=== PATIENT | male | born 1960 | race American Indian/Alaskan Native ===

== ENCOUNTER 2018-01-22 11:55 | Inpatient (IN) | payer SELFPAY ==
--- NOTE | 2018-01-22 12:23 | ED PDOC ---
Arrival/HPI - History of Present Illness Time/Duration: 24 hours Symptom Onset: Gradual Symptom Course: Intermittent, Worsening Activities at Onset: Sleeping Context: Exertion <Devon Nielsen - Last Filed: 01/22/18 14:07> <Wilson Bedoya - Last Filed: 01/22/18 15:41> - General Chief Complaint: Shortness Of Breath Time Seen by Provider: 01/22/18 12:02 - History of Present Illness Narrative History of Present Illness (Text): 01/22/18 12:20 Patient is a 57 year old male with no PMH who presents to ED with shortness of breath that has been going on intermittently for the past week but worsening for the last 12 hours. He states that he had an upper respiratory infection 2 weeks ago and was subsequently treated with antibiotics. He finished the antibiotics 6 days ago. He states that the SOB is worse when he lies down and endorses orthopnea and paroxysmal nocturnal dyspnea. He also states he has had a dry cough over the past week which is also worse at night. He denies fever, chills, CP, palpitations, peripheral swelling, calf pain, recent surgery, or recent travel. Normally he is ambulatory independently at home. (Devon Nielsen) Past Medical History - Provider Review Nursing Documentation Reviewed: Yes - Travel History Have you recently traveled outside [place] w/in the past 3 mons?: No - Psychiatric Hx Substance Use: No <Devon Nielsen - Last Filed: 01/22/18 14:07> Family/Social History - Physician Review Nursing Documentation Reviewed: Yes Family/Social History: Hypertension (mother and father) Smoking Status: Never Smoked Hx Alcohol Use: No Hx Substance Use: No <Devon Nielsen - Last Filed: 01/22/18 14:07> Allergies/Home Meds <Devon Nielsen - Last Filed: 01/22/18 14:07> <Wilson Bedoya - Last Filed: 01/22/18 15:41> Allergies/Adverse Reactions: Allergies No Known Allergies Allergy (Verified 01/22/18 12:03) Home Medications: Home Meds Medication Instructions Recorded Confirmed No Known Home Med 01/22/18 01/22/18 Review of Systems - Physician Review All systems were reviewed & negative as marked: Yes - Review of Systems Constitutional: absent: Fatigue, Weight Change, Fevers Eyes: absent: Vision Changes ENT: Sinus Congestion. absent: Sore Throat, Rhinorrhea Respiratory: SOB, Cough. absent: Sputum, Wheezing Cardiovascular: SLATER. absent: Chest Pain, Palpitations, Calf Pain Gastrointestinal: absent: Abdominal Pain, Nausea, Vomiting Genitourinary Male: absent: Dysuria, Frequency Musculoskeletal: absent: Arthralgias, Back Pain Skin: absent: Rash, Pruritis Neurological: absent: Headache, Dizziness, Speech Changes Endocrine: absent: Diaphoresis Hemo/Lymphatic: absent: Adenopathy Psychiatric: absent: Anxiety, Depression <Devon Nielsen - Last Filed: 01/22/18 14:07> Physical Exam Vital Signs Reviewed: Yes Temperature: Afebrile Blood Pressure: Normal Pulse: Regular Respiratory Rate: Normal Appearance: Positive for: Non-Toxic, Comfortable Pain Distress: Mild (patient dyspneic while speaking) Mental Status: Positive for: Alert and Oriented X 3 - Systems Exam Head: Present: Atraumatic, Normocephalic Pupils: Present: PERRL Extroacular Muscles: Present: EOMI Conjunctiva: Present: Normal Ears: Present: Normal Mouth: Present: Moist Mucous Membranes Pharnyx: Present: Normal. No: ERYTHEMA, EXUDATE Nose (External): Present: Atraumatic Neck: Present: Normal Range of Motion. No: JVD Respiratory/Chest: Present: Clear to Auscultation, Other (dyspneic while speaking and with exertion). No: Wheezes, Rales, Rhonchi Cardiovascular: Present: Normal S1, S2, Tachycardic. No: Murmurs, Rub, Gallop Abdomen: No: Tenderness, Rebound, Guarding Upper Extremity: Present: Normal Inspection. No: Cyanosis Lower Extremity: Present: Normal Inspection. No: Edema Neurological: Present: Speech Normal, Motor Func Grossly Intact, Gait Normal Skin: Present: Warm, Dry Psychiatric: Present: Alert, Oriented x 3 <Devon Nielsen - Last Filed: 01/22/18 14:07> Vital Signs Temp Pulse Resp BP Pulse Ox 01/22/18 14:16 177/80 H 01/22/18 14:06 97 H 17 152/95 H 97 01/22/18 12:05 17 98 01/22/18 12:01 98.8 F 99 H 18 177/81 H 98 Medical Decision Making - Lab Interpretations I have reviewed the lab results: Yes - RAD Interpretation Tree Driller: Radiologist - EKG Interpretation Interpreted by ED Physician: Yes Type: 12 lead EKG Comparison: No previous EKG avail. <Devon Nielsen - Last Filed: 01/22/18 14:07> <Wilson Bedoya - Last Filed: 01/22/18 15:41> ED Course and Treatment: 01/22/18 12:25 -Patient presenting with SOB worsening over the past week -Lungs CTA bilaterally -Mild tachycardia but denies recent travel, surgery, immobility, or calf pain/ swelling -EKG with biatrial enlargement, left axis deviation, prolonged QT, likely chronic changes but no prior EKG to compare -Will get CBC, CMP, BNP, troponin, D-dimer 01/22/18 13:31 -D-dimer, troponins negative -BNP elevated at 1750 with pulmonary vascular congestion on CXR -Patient has no prior diagnosis of CHF -Single dose of Lasix 40 mg IVP given in ED -Case discussed with Dr. Law who agrees with plan for admission (Devon Nielsen) pt seenw [facility] resident progressive dyspnea. s/p antibitoics by pmd. cxr shows congestion, bnp elevated. lasix dosed. accepted to tele by pmd. 01/22/18 15:40 (Wilson Bedoya) - Lab Interpretations Lab Results: 01/22/18 12:46 01/22/18 12:46 Lab Results 01/22/18 12:46: Sodium 145, Potassium 4.2, Chloride 106, Carbon Dioxide 28, Anion Gap 15, BUN 20, Creatinine 1.5, Est GFR ( Amer) 59, Est GFR (Non- Af Amer) 49, Random Glucose 109, Calcium 8.6, Magnesium 1.9, Total Bilirubin 0.6 , AST 51, ALT 55, Alkaline Phosphatase 47, Lactate Dehydrogenase 614, Total Creatine Kinase 767 H, CK-MB (CK-2) 5.5 H, CK-MB (CK-2) % 0.7 L, Troponin I 0.04 , NT-Pro-B Natriuret Pep 1750 H, Total Protein 7.2, Albumin 4.0, Globulin 3.2, Albumin/Globulin Ratio 1.2 01/22/18 12:46: Urine Color Yellow, Urine Appearance Clear, Urine pH 6.0, Ur Specific [place] 1.025, Urine Protein Negative, Urine Glucose (UA) Negative, Urine Ketones Negative, Urine Blood Negative, Urine Nitrate Negative, Urine Bilirubin Negative, Urine Urobilinogen 0.2, Ur Leukocyte Esterase Small H, Urine RBC Negative, Urine WBC 2 - 5, Ur Epithelial Cells 1 - 3 01/22/18 12:46: PT 11.7, INR 1.03, APTT 30.0, D-Dimer, Quantitative < 200 01/22/18 12:46: WBC 5.3, RBC 5.18, Hgb 14.2, Hct 43.5, MCV 84.0, MCH 27.4, MCHC 32.6, RDW 14.6 H, Plt Count 189, MPV 11.3 H, Gran % 44.3 L, Lymph % (Auto) 43.6 H, [place] % (Auto) 8.5 H, Eos % (Auto) 3.0, Baso % (Auto) 0.6, Gran # 2.35, Lymph # (Auto) 2.3, [place] # (Auto) 0.5, Eos # (Auto) 0.2, Baso # (Auto) 0.03 - RAD Interpretation Narrative RAD Interpretations (Text): 01/22/18 13:34 CXR IMPRESSION: No active pulmonary disease. Severe cardiomegaly and mild pulmonary venous congestion. (Devon Nielsen) Radiology Orders: 01/22/18 12:29 CHEST PORTABLE [RAD] Stat - EKG Interpretation EKG Interpretation (Text): 01/22/18 12:28 Biatrial enlargement, left axis deviation, prolonged QT. Likely chronic changes but no prior EKG for comparison. (Devon Nielsen) - Medication Orders Current Medication Orders: Furosemide (Lasix) 40 mg IVP Q12 SATINDER Discontinued Medications Furosemide (Lasix) 40 mg IVP STAT STA Stop: 01/22/18 13:31 Last Admin: 01/22/18 14:16 Dose: 40 mg MAR Blood Pressure Document 01/22/18 14:16 [email or web address] (Rec: 01/22/18 14:16 [email or web address] [id number]) Blood Pressure Blood Pressure (100/60-150/90) 177/80 IVP Administration Document 01/22/18 14:16 [email or web address] (Rec: 01/22/18 14:16 [email or web address] [id number]) Charges for Administration # of IVP Administrations 1 <Devon Nielsen - Last Filed: 01/22/18 14:07> - Scribe Statement The provider has reviewed the documentation as recorded by the Scribe <Wilson Bedoya - Last Filed: 01/22/18 15:41> - Scribe Statement Cameron Freire Patient Seen With Resident: In agreement with resident note. Patient was seen and evaluated with resident, came up with plan and treatment together. (Wilson Bedoya) Disposition/Present on Arrival - Present on Arrival Any Indicators Present on Arrival: No History of DVT/PE: No History of Uncontrolled Diabetes: No Urinary Catheter: No History of Decub. Ulcer: No History Surgical Site Infection Following: None - Disposition Have Diagnosis and Disposition been Completed?: Yes Disposition Time: 13:36 Patient Plan: Admission <Devon Nielsen - Last Filed: 01/22/18 14:07> <Wilson Bedoya - Last Filed: 01/22/18 15:41> - Disposition Diagnosis: Acute exacerbation of CHF (congestive heart failure), Pulmonary edema, Shortness of breath Disposition: HOSPITALIZED Patient Problems: Current Active Problems Problem Status Onset Acute exacerbation of CHF (congestive heart failure) Acute Pulmonary edema Acute Shortness of breath Acute Condition: FAIR
--- NOTE | 2018-01-22 12:50 | RAD ---
Date of service: 01/22/2018 HISTORY: Shortness of breath COMPARISON: No prior. FINDINGS: LUNGS: The lungs are well inflated and clear. There is mild pulmonary venous congestion. PLEURA: No significant pleural effusion identified, no pneumothorax apparent. CARDIOVASCULAR: There is severe cardiomegaly. OSSEOUS STRUCTURES: No significant abnormalities. VISUALIZED UPPER ABDOMEN: Normal. OTHER FINDINGS: None. IMPRESSION: No active pulmonary disease. Severe cardiomegaly and mild pulmonary venous congestion.
[2018-01-22 12:55] LABS: BASO # 0.03 K/mm3 (0.0-2.0); BASO % 0.6 % (0.0-3.0); EOS # 0.2 (0.0-0.7); GRAN # 2.35 (1.4-6.5); GRAN % 44.3 % (50.0-68.0); HEMOGLOBIN 14.2 g/dL (14.0-18.0); LYMPH # 2.3 (1.2-3.4); LYMPH % 43.6 % (22.0-35.0); MEAN CORPUSCULAR HEMOGLOBIN 27.4 pg (25.0-35.0); MEAN CORPUSCULAR HGB CONC 32.6 g/dl (31.0-37.0); MEAN PLATELET VOLUME 11.3 fl (7.0-11.0); MONO # 0.5 (0.1-0.6); MONO % 8.5 % (1.0-6.0); RBC 5.18 10^6/uL (3.5-6.1); RED CELL DISTRIBUTION WIDTH 14.6 % (11.5-14.5); WHITE BLOOD COUNT 5.3 10^3/ul (4.5-11.0)
[2018-01-22 12:56] LABS: URINE APPEARANCE CLEAR (CLEAR); URINE BILIRUBIN NEGATIVE (NEGATIVE); URINE BLOOD NEGATIVE (NEGATIVE); URINE COLOR YELLOW (YELLOW); URINE GLUCOSE (UA) NEGATIVE (NEGATIVE); URINE LEUKOCYTE ESTERASE SMALL Leu/uL (NEGATIVE); URINE PROTEIN NEGATIVE mg/dL (<30 mg/dL); URINE UROBILINOGEN 0.2 E.U./dL (<1 E.U./dL)
[2018-01-22 13:07] LABS: ALB/GLOB RATIO 1.2 (1.1-1.8); CALCIUM 8.6 mg/dL (8.4-10.5)
[2018-01-22 13:08] LABS: URINE RBC NEGATIVE /hpf (0-2)
[2018-01-22 13:17] LABS: TROPONIN I 0.04 ng/mL
[2018-01-22 13:20] LABS: INR 1.03; PROTHROMBIN TIME 11.7 SECONDS (9.4-12.5)
[2018-01-22 13:23] LABS: CK MB% 0.7 % (2.5-3.0); CK-MB 5.5 ng/mL (0.0-3.6)
[2018-01-22 13:24] LABS: D DIMER < 200 ng/mlDDU (0-243)
[2018-01-22 17:11] VITALS: BMI 32.1
[2018-01-22] MEDS ORDERED: Pneumococcal 23-Valent Vaccine IM ONE (17:11)
--- NOTE | 2018-01-22 17:24 | CARD ---
APPROVED REPORT Date of service: 01/22/2018 EXAM: Two-dimensional and M-mode echocardiogram with Doppler and color Doppler. INDICATION Congestive Heart Failure 2D DIMENSIONS Left Atrium (2D)5.3 (1.6-4.0cm)IVSd1.1 (0.7-1.1cm) LVDd7.3 (3.9-5.9cm)PWd1.3 (0.7-1.1cm) FS (%) 10.8 %LVEF (%)22.7 (>50%) Aortic Valve AoV Peak Apljctyv81.5cm/[place] Peak GR.3mmHg Mitral Valve E/A ratio0.0 TDI E/Lateral E'0.0E/Medial E'0.0 LEFT VENTRICLE The Left Ventricle is moderately dilated. There is normal left ventricular wall thickness. The systolic function is severely impaired. There is global hypokinesis of the left ventricle. The left ventricular diastolic function is normal. No left ventricle thrombus noted on this study. RIGHT VENTRICLE The right ventricle is normal size. There is normal right ventricular wall thickness. Systolic function is mildly reduced. ATRIA The left atrium is moderately dilated. The right atrium size is normal. AORTIC VALVE The aortic valve is normal in structure. There is trace aortic regurgitation. There is no aortic valvular stenosis. MITRAL VALVE The mitral valve is mildly thickened. Mitral regurgitation is moderate. There is no mitral valve stenosis. TRICUSPID VALVE The tricuspid valve is normal in structure. There is no tricuspid valve regurgitation noted. PULMONIC VALVE The pulmonary valve is normal in structure. There is mild pulmonic valvular regurgitation. GREAT VESSELS The aortic root is normal in size. The IVC is normal in size and collapses >50% with inspiration. <Conclusion> The Left Ventricle is moderately dilated. There is normal left ventricular wall thickness. The systolic function is severely impaired. There is global hypokinesis of the left ventricle. No left ventricle thrombus noted on this study. Mitral regurgitation is moderate.
--- NOTE | 2018-01-22 17:38 | CARD ---
APPROVED REPORT Date of service: 01/22/2018 EKG Measurement Heart [id number] <Conclusion> Normal sinus rhythm Biatrial enlargement Left axis deviation Anterior infarct, age undetermined Prolonged QT Abnormal ECG
--- NOTE | 2018-01-22 19:52 | HP ---
HISTORY OF PRESENT ILLNESS: The patient is a 57-year-old man with no known medical problems who presented to [facility] ED for a 1 week history of progressively worsening exertional dyspnea, bilateral pedal edema and 3-pillow orthopnea. The patient was seen in his PMD's office approximately 2 weeks ago for URI symptoms which were treated with a cough suppressant and a course of antibiotics. The patient reported resolution of his symptoms after his course of treatment. Approximately 5 days later he re-developed cough productive of scant, clear sputum associated with exertional dyspnea. Over the course of the following 3- 4 days he began to experience dyspnea at rest and subsequently developed 3- pillow orthopnea. He denies fevers, chills, rigors, chest pain or palpitations associated with these symptoms. Of note, the patient was seen in his PMD's approximately 6 months ago for complaint of angina and was recommended to undergo a nuclear stress test but declined due to lack of medical insurance. PAST MEDICAL HISTORY: None. PAST SURGICAL HISTORY: None. ALLERGIES: NKDA. MEDICATIONS: None. FAMILY HISTORY: Noncontributory. SOCIAL HISTORY: The patient denies any toxic habits. REVIEW OF SYSTEMS: A 12-point review of systems is negative except as per HPI. PHYSICAL EXAMINATION: VITAL SIGNS: Temperature 97.9, pulse 96, blood pressure 127/86, respiratory rate 20, oxygen saturation 99% on room air. GENERAL: No apparent distress. HEENT: PERRL, EOMI. No scleral icterus. No conjunctival pallor. NECK: No JVD. LUNGS: Bibasilar crackles with few scattered rhonchi. CARDIOVASCULAR: Regular rate and rhythm. Normal S1 and S2. ABDOMEN: Normoactive bowel sounds, soft, nontender, nondistended. EXTREMITIES: Trace lower extremity edema bilaterally. NEUROLOGIC: Awake, alert, and oriented x 3. No focal motor deficits. LABORATORY DATA: CBC reviewed and unremarkable. CMP reviewed and unremarkable. Troponin 0.04. BNP 1750. IMAGING STUDIES: Chest x-ray demonstrates severe cardiomegaly with pulmonary venous congestion. ASSESSMENT: The patient is a 57-year-old man with no known medical history who presented for evaluation of a 1 week history of progressively worsening bilateral pedal edema, dyspnea with exertion progressing to dyspnea at rest 3-pillow orthopnea who was admitted for management of acute systolic heart failure. PLAN: 1. Acute systolic heart failure, new onset. Dr. Yepez has been consulted for further evaluation and recommendations. We will cycle cardiac enzymes for 3 sets and obtain a TTE to assess LV function. Continue Lasix 40mg IV daily. Continue to monitor strict I&O's. 2. Prophylaxis. GI prophylaxis is not indicated as the patient is eating. DVT prophylaxis is not indicated as the patient is ambulatory. CODE STATUS: Full code. Guillermo Law MD [facility]
--- NOTE | 2018-01-23 05:01 | CP.PCM.PN ---
Subjective - Date & Time of Evaluation Date of Evaluation: 01/23/18 Time of Evaluation: 05:01 - Subjective Subjective: patient information Objective - Vital Signs/Intake and Output Vital Signs (last 24 hours): Temp Pulse Resp BP Pulse Ox 98.5 F 80 20 137/99 H 97 01/23/18 00:01 01/23/18 02:00 01/23/18 00:01 01/23/18 00:01 01/23/18 00:01 Intake and Output: 01/22/18 01/23/18 18:59 06:59 Intake Total 180 Balance 180 - Medications Medications: Current Medications Furosemide (Lasix) 40 mg IVP Q12 SATINDER Last Admin: 01/22/18 21:44 Dose: 40 mg - Labs Labs: PT 11.7 SECONDS (9.4-12.5) 01/22/18 12:46 INR 1.03 01/22/18 12:46 APTT 30.0 Seconds (25.1-36.5) 01/22/18 12:46 Assessment and Plan - Assessment and Plan (Free Text) Plan: Patient had 6 seconds of SVT and 4 seconds of atrial flutter and converted back to NSR.
[2018-01-23 06:13] VITALS: O2SAT 93
[2018-01-23 09:16] LABS: BASO # 0.03 K/mm3 (0.0-2.0); BASO % 0.5 % (0.0-3.0); EOS # 0.2 (0.0-0.7); GRAN # 3.13 (1.4-6.5); GRAN % 49.3 % (50.0-68.0); HEMOGLOBIN 15.9 g/dL (14.0-18.0); LYMPH # 2.4 (1.2-3.4); LYMPH % 37.7 % (22.0-35.0); MEAN CELL VOLUME 83.4 fl (80.0-105.0); MEAN CORPUSCULAR HEMOGLOBIN 27.6 pg (25.0-35.0); MEAN CORPUSCULAR HGB CONC 33.1 g/dl (31.0-37.0); MONO # 0.6 (0.1-0.6); MONO % 9.5 % (1.0-6.0); RBC 5.77 10^6/uL (3.5-6.1); RED CELL DISTRIBUTION WIDTH 14.6 % (11.5-14.5); WHITE BLOOD COUNT 6.3 10^3/ul (4.5-11.0)
[2018-01-23 09:32] LABS: ALB/GLOB RATIO 1.2 (1.1-1.8); ALBUMIN 4.7 g/dL (3.0-4.8); CALCIUM 9.3 mg/dL (8.4-10.5)
--- NOTE | 2018-01-23 09:33 | PN ---
SUBJECTIVE: The patient was seen and examined at bedside on the telemetry lauren. No acute events overnight. He remains afebrile and hemodynamically stable. This morning he reports significant improvement in his respiratory status since admission and states that he is now able to lie flat without respiratory distress. He otherwise denies fevers, chills, rigors, chest pain or palpitations. OBJECTIVE: VITAL SIGNS: Temperature 98.1, pulse 86, blood pressure 119/71, respiratory rate 18, oxygen saturation 95% on room air. GENERAL: No apparent distress. HEENT: PERRL, EOMI. No scleral icterus. No conjunctival pallor. NECK: No JVD. LUNGS: Decreased breath sounds at the bases. CARDIOVASCULAR: Regular rate and rhythm. Normal S1 and S2. ABDOMEN: Normoactive bowel sounds. Soft, nontender and nondistended. EXTREMITIES: No edema. NEUROLOGIC: Awake, alert and oriented x 3. No focal motor deficits. LABORATORY DATA: Morning labs are pending. DIAGNOSTIC STUDIES: TTE demonstrates a moderately dilated LV with severely impaired systolic function and global hypokinesis of the left ventricle. ASSESSMENT: The patient is a 57-year-old man with no known medical history who presented for evaluation of a 1 week history of progressively worsening bilateral pedal edema, dyspnea with exertion progressing to dyspnea at rest and 3-pillow orthopnea who was admitted for management of acute systolic heart failure. PLAN: 1. Acute systolic heart failure, new onset. The patient has endorsed significant improvement since admission and has diuresed 660 mL since admission. Cardiac evaluation with Dr. Yepez is pending. TTE reviewed. The patient was advised that he may likely require cardiac catheterization to further assess the etiology of his heart failure. Continue Lasix 40 mg IV q. 12 hours. Continue to monitor strict I&O's. 2. Prophylaxis. GI prophylaxis is not indicated as the patient is eating. DVT prophylaxis not indicated as the patient is ambulatory. CODE STATUS: Full code. Guillermo Law MD [facility]
[2018-01-23 09:36] LABS: TROPONIN I 0.04 ng/mL
[2018-01-23 12:14] VITALS: BP 139/104; PULSE 92; RESP 21; TEMP 98
--- NOTE | 2018-01-23 13:41 | CON ---
Copied To: Cameron Yepez MD Attending MD: Cameron Yepez MD DATE: 01/23/2018 CARDIOLOGY CONSULTATION HISTORY: The patient is a 57-year-old male with no previous past medical history, has been complaining of chest pain and shortness of breath since August of this year. He was advised to have cardiac testing in which he refused because he had no insurance. He has been lost to followup until recently where he has complained of progressive shortness of breath over the past week or two. This was associated with pedal edema. No angina noted. He denies hypertension. Denies diabetes mellitus. SOCIAL HISTORY: The patient does not smoke. 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 FAMILY HISTORY: Has a strong family history for coronary artery disease. REVIEW OF SYSTEMS: Fourteen-point review of systems is reviewed in detail. They are all mentioned above. PHYSICAL EXAMINATION: VITAL SIGNS: Blood pressure is 119/71, the heart rate is in the 80s. NECK: Negative JVD. LUNGS: Without rales. HEART: Reveals S1, S2. EXTREMITIES: Without edema. EKG shows a right axis deviation with poor R-wave progression consistent with COPD. LABORATORY DATA: The creatinine is up to 1.9 with a potassium of 4.2. The admitting ProBNP was 1750. Troponin is 0.04. Hemoglobin is 15.9. IMPRESSION: 1. Acute systolic congestive heart failure. 2. Dilated cardiomyopathy with an ejection fraction measured on echocardiogram of 23%. 3. Dyspnea. 4. Pedal edema. 5. Mild renal insufficiency. PLAN: Given these findings, the patient is ambulating without symptoms. We will continue daily Lasix 40 once a day. I do not feel an BRENT inhibitor would be appropriate given his renal insufficiency at this time. We will make arrangements for an outpatient stress Cardiolite to rule out coronary artery disease as his etiology for his weak heart. Followup and instructions have been given to the patient in detail. Cameron Yepez MD
--- NOTE | 2018-01-23 14:29 | CARD ---
APPROVED REPORT Date of service: 01/23/2018 EKG Measurement Heart [id number] [place] [id number] <Conclusion> Normal sinus rhythm with sinus arrhythmia Right atrial enlargement Left axis deviation Pulmonary disease pattern Nonspecific T wave abnormality Prolonged QT Abnormal ECG
== END 2018-01-23 13:29 | disposition home or self-care (01) | DRG 292 ==
LOC: ED 11:55 → ERH 13:30 → 2RSO 14:47
PROVIDERS: ADMIT Student in an Organized Health Care Education/Training Program; ATTEND Student in an Organized Health Care Education/Training Program
DX: I50.21 Acute systolic (congestive) heart failure (principal); I42.0 Dilated cardiomyopathy; I47.1 Supraventricular tachycardia; I48.92 Unspecified atrial flutter; N28.9 Disorder of kidney and ureter, unspecified; I45.81 Long QT syndrome; Z82.49 Family history of ischemic heart disease and other diseases of the circulatory system